=== PATIENT | male | born 1945 | race Caucasian/White ===

== ENCOUNTER 2019-05-05 17:27 | Emergency (ER) | payer OTHER ==
[~2019-05-05] VITALS: Ht 177.8 cm; Wt 94.3 kg
[~2019-05-05 17:27] MED LIST: ALLOPURINOL100 MG PO; GLIMEPIRIDE4 MG PO; JANUVIA100 MG PO; LASIX20 MG PO; LOSARTAN POTAS100 MG PO; MECLIZINE HCL25 MG PO; OMEPRAZOLE20 M1 PO; TAMSULOSIN HCL0.4 MG PO
--- NOTE | 2019-05-05 18:41 | Diagnostic Imaging Report ---
EXAM: Scrotal Ultrasound with Duplex INDICATION: ^PAIN ^[id number] ^[id number] ^Y COMPARISON: None TECHNIQUE: Transverse and longitudinal images were obtained of the scrotum with grayscale imaging, color Doppler and spectral waveform analysis. FINDINGS: Right testis: Size: 4.8 x 3.1 x 3.6 cm, normal in size. Echogenicity: Normal Mass/Cysts: None Left testis: Size: 4.2 x 2.2 x 3.1 cm, normal in size. Echogenicity: Normal Mass/Cysts: None Epididymis: Appearance: Normal in size without increased vascularity. Mass/Cysts: None Extratesticular: Masses: None Hydrocele: Large complex septated right hydrocele. Moderate to large left hydrocele with internal debris. Varicocele: None Doppler: Normal arterial flow to both testes and symmetrical flow on color Doppler evaluation is seen. No evidence of testicular torsion. IMPRESSION: 1. No evidence of testicular torsion. 2. Bilateral complex hydroceles, right slightly greater than left. Signed by: Dr. Shakeel Alves MD on 05/05/2019 6:39 PM
[2019-05-05 19:06] LABS: CLARITY,URINE SL CLOUDY (CLEAR); COLOR,URINE YELLOW (YELLOW); KETONES,URINE TRACE (NEGATIVE); LEUKOCYTE ESTERASE ,URINE MODERATE (NEGATIVE); NITRITE,URINE POSITIVE (NEGATIVE); PROTEIN,URINE DIPSTICK NEGATIVE (NEGATIVE); URINE UROBILINOGEN 0.2 mg/dL (0.2 - 1)
[2019-05-05 19:07] LABS: BILIRUBIN,URINE NEGATIVE (NEGATIVE)
[2019-05-05 19:16] LABS: BACTERIA,URINE MANY /HPF; EPITHELIAL CELLS,URINE FEW /LPF; WBC,URINE (MAN) 21-50 /HPF (0-5)
== END 2019-05-05 20:27 | disposition home or self-care (01) ==
LOC: ER 17:27
DX: N50.811 Right testicular pain (principal); N30.91 Cystitis, unspecified with hematuria; I10 Essential (primary) hypertension; E11.9 Type 2 diabetes mellitus without complications; I51.9 Heart disease, unspecified
CPT/HCPCS: 76870; 81001; 93976; 99282

== ENCOUNTER 2022-05-16 19:29 | Emergency (ER) | payer MEDICARE, OTHER ==
[~2022-05-16] VITALS: Ht 177.8 cm; Wt 94.3 kg
== END 2022-05-17 00:45 | disposition home or self-care (01) ==
LOC: ER 19:42
DX: S00.83XA Contusion of other part of head, initial encounter (principal); S00.81XA Abrasion of other part of head, initial encounter; W01.0XXA Fall on same level from slipping, tripping and stumbling without subsequent striking against object, initial encounter; Y93.01 Activity, walking, marching and hiking; Y92.89 Other specified places as the place of occurrence of the external cause; I10 Essential (primary) hypertension; E11.9 Type 2 diabetes mellitus without complications; J44.9 Chronic obstructive pulmonary disease, unspecified; I25.2 Old myocardial infarction
CPT/HCPCS: 70450; 72125; 99283

== ENCOUNTER 2024-12-24 21:10 | Emergency (ER) | payer MEDICARE ==
[~2024-12-24] VITALS: Ht 177.8 cm; Wt 94.3 kg
[2024-12-24 21:55] VITALS: PULSE 92; RESP 16; TEMP 98.4; O2SAT 93
[2024-12-24] MEDS: BACITRACIN ZINC 0.9GM TP ONE (22:30)
== END 2024-12-24 22:31 | disposition home or self-care (01) ==
LOC: ER 22:00
DX: S41.112A Laceration without foreign body of left upper arm, initial encounter (principal); W01.198A Fall on same level from slipping, tripping and stumbling with subsequent striking against other object, initial encounter; Y92.89 Other specified places as the place of occurrence of the external cause; I10 Essential (primary) hypertension; E11.9 Type 2 diabetes mellitus without complications; J44.9 Chronic obstructive pulmonary disease, unspecified; I25.10 Atherosclerotic heart disease of native coronary artery without angina pectoris; M10.9 Gout, unspecified; I25.2 Old myocardial infarction
CPT/HCPCS: 99283